=== PATIENT | female | born 1955 | race Caucasian/White ===

== ENCOUNTER → 2018-05-17 | Day surgery (SDC) | payer OTHER ==
[~2018-05-17] MED LIST: FELODIPINE ER5 MG PO; FENTANYL CITRATE/PF 100MCG/2 ML INJ ONE; HYOSCYAMINE SULFATE 0.5 MG/ML INJ ONE; LEVOTHYROXINE50 MCG PO; LIDOCAINE HCL 2% LOCAL INJ 5 ML SDV VIAL INJ ONE; LORATADINE10 MG PO; METOPROLOL SUCC25 MG PO; MIDAZOLAM HCL 2 MG/2 ML VIAL ONE; PROPOFOL IV EMULSION 10 MG/ML 50 ML VIAL ONE
--- OUTSIDE RECORDS SUMMARY | 2018-05-17 05:52 | XMS REPORT | CCD ---
Author Author Auto Generated Organization [facility] [place] Address Unknown Phone Unavailable Care Team Providers Care Program Manufacturing Leader Name Role Phone Norm Osullivan CP Allergies, Adverse Reactions, Alerts Substance Reaction Status Ed-Mycin Active
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
--- OUTSIDE RECORDS SUMMARY | 2018-05-17 05:52 | XMS REPORT | CCD ---
Author Author Auto Generated Organization [facility] Address Unknown Phone Unavailable Care Team Providers Care Accounting Professor Name Role Phone Press, Manjinder Gallegos CP Allergies, Adverse Reactions, Alerts Substance Reaction Status Ed-Mycin Active NKDA Canceled Medications Medication Instructions Start Date End Date Status Plendil 5 mg oral Substitution Allowed 05/03/2011 Ordered tablet, extended release Synthroid Substitution Allowed 05/03/2011 Ordered Vital Signs Most recent to oldest [Reference Range]: 1 Height 154.94 cm (05/03/2011 21:22:00) Weight 63.636 kg (05/03/2011 21:22:00)
--- OUTSIDE RECORDS SUMMARY | 2018-05-17 05:52 | XMS REPORT | Summary of Care ---
Author Author [facility] [place] Organization [facility] [place] Address Unknown Phone Unavailable Encounter HQ Encntr_alias(FIN) [id number] Date(s): 03/25/16 - 03/25/16 [facility] [place] [address] [phone] Discharge Disposition: Home or Self Care Attending Physician: Norm Osullivan MD Vital Signs No data available for this section Problem List No data available for this section Allergies, Adverse Reactions, Alerts Substance Reaction Severity Status Ed-Mycin Active Medications No data available for this section Results No data available for this section Immunizations No data available for this section Procedures No data available for this section Social History No data available for this section Assessment and Plan No data available for this section
[2018-05-17 09:25] VITALS: BP 125/77
--- NOTE | 2018-05-17 17:05 | Operative Report ---
DATE OF PROCEDURE: 05/17/2018 SURGEON: Cliff Pa MD PROCEDURES: Colonoscopy and polypectomy. INDICATIONS FOR COLONOSCOPY: Colorectal cancer screening. MEDICATIONS: The patient was done under MAC, please see anesthesiologist's note. PROCEDURE IN DETAIL: With the patient in left lateral decubitus position, flexible fiberoptic Olympus colonoscope was inserted into the rectum with ease and advanced all the way to the cecum. An approximately 6 mm polyp was removed per cold snare polypectomy from the cecum and polypectomy site was hemoclipped. The scope was then withdrawn slowly and then some scattered diverticular disease was noted pretty much throughout in the sigmoid colon. Two polyps were hot biopsied. One polyp was inside a diverticulum and it was partially excised with cold biopsy forceps. Two polyps were hot biopsied from the rectum. The scope was then retroflexed into the distal rectum and small internal hemorrhoids were noted, none of which was actively bleeding. The scope was then straightened out, it was subsequently withdrawn. The patient tolerated the procedure well. IMPRESSION: 1. Cecal polyp, cold snared, polypectomy site hemoclipped. 2. Diverticulosis. 3. Sigmoid colon polyps x2, hot biopsied. 4. Sigmoid colon polyp x1 inside the diverticulum, partially excised with cold biopsy forceps. 5. Rectal polyps x2, hot biopsied. 6. Internal hemorrhoids, none actively bleeding. PLAN: Follow up histology. Initiate high-fiber, low-fat diet. Initiate high-fiber supplement. The patient might benefit from a followup colonoscopy in 3 years. Cliff Pa MD [facility]/CHAD /[id number] cc: Rustam Zhao
== END | disposition home or self-care (01) ==
LOC: OR 05:50
PROVIDERS: ATTEND Internal Medicine Gastroenterology
DX: Z12.11 Encounter for screening for malignant neoplasm of colon (principal); D12.0 Benign neoplasm of cecum; D12.8 Benign neoplasm of rectum; K57.30 Diverticulosis of large intestine without perforation or abscess without bleeding; K59.09 Other constipation; K64.8 Other hemorrhoids; I10 Essential (primary) hypertension; E03.9 Hypothyroidism, unspecified; E78.5 Hyperlipidemia, unspecified; D50.8 Other iron deficiency anemias; H54.61 Unqualified visual loss, right eye, normal vision left eye; I49.1 Atrial premature depolarization; Z91.048 Other nonmedicinal substance allergy status; Z68.28 Body mass index [BMI] 28.0-28.9, adult
CPT/HCPCS: 45380; 45384; 45385; 93005; J1980; J2001; J2250; J2704; 44391